=== PATIENT | female | born 1955 | race Caucasian/White ===

== ENCOUNTER 2022-06-11 20:48 | Observation (INO) | payer MEDICARE, OTHER ==
[~2022-06-11] VITALS: Ht 155 cm; Wt 81.5 kg
[2022-06-11] MEDS ORDERED: BENZ200C51 PO (21:05)
[2022-06-11] MEDS ORDERED: AMLO-250 PO (21:05)
[2022-06-11] MEDS ORDERED: LOSA100T57 PO (21:05)
[2022-06-11] MEDS ORDERED: CYCL10TA25 PO (21:05)
[2022-06-11] MEDS ORDERED: CELE-63 PO (21:05)
[2022-06-11] MEDS ORDERED: DEXL60CA6 PO (21:05)
[2022-06-11] MEDS ORDERED: SIMV40TA25 PO (21:05)
[2022-06-11] MEDS ORDERED: ESCI20TA39 PO (21:05)
[2022-06-11 21:17] LABS: BASOPHILS # (AUTO) 0.1 10^3/uL (0.0-0.1); BASOPHILS % (AUTO) 1 % (0-10); EOSINOPHILS # (AUTO) 0.2 10^3/uL (0.0-0.3); EOSINOPHILS % (AUTO) 2 % (0-10); HEMATOCRIT 42 % (35-52); HEMOGLOBIN 14.3 g/dL (11.5-16.0); LYMPHOCYTES # (AUTO) 3.2 10^3/uL (1.0-4.0); LYMPHOCYTES % (AUTO) 32 % (12-44); MEAN CORPUSCULAR HEMOGLOBIN 30 pg (25-34); MEAN CORPUSCULAR HGB CONC 34 g/dL (32-36); MEAN CORPUSCULAR VOLUME 87 fL (80-99); MEAN PLATELET VOLUME 10.8 fL (9.0-12.2); MONOCYTES # (AUTO) 0.7 10^3/uL (0.0-1.0); MONOCYTES % (AUTO) 7 % (0-12); NEUTROPHILS # (AUTO) 5.7 10^3/uL (1.8-7.8); NEUTROPHILS % (AUTO) 58 % (42-75); PLATELET COUNT 260 10^3/uL (130-400); WHITE BLOOD COUNT 9.9 10^3/uL (4.3-11.0)
--- NOTE | 2022-06-11 21:24 | ED General ---
General Chief Complaint: Neurological Problems Stated Complaint: NUMBNESS ALL OVER Nursing Triage Note: c/o right hand/wrist numbness, intermittant numbness all over since 1300 06/10/22. Source of Information: Patient (EXTREMELY DIFFICULT AND VAGUE HISTORIAN) History of Present Illness Date Seen by Provider: Jun 11, 2022 Time Seen by Provider: 21:03 Allergies and Home Medications Allergies Coded Allergies: Penicillins (Verified Allergy, Unknown, 06/11/22) Patient Home Medication List Amlodipine Besylate (Amlodipine Besylate) 5 Mg Tablet, (Reported) Entered as Reported by: RICKY VEGAS on 06/11/222104 Last Action: New Order Benzonatate (Benzonatate) 200 Mg Capsule, (Reported) Entered as Reported by: RICKY VEGAS on 06/11/222104 Last Action: New Order Celecoxib (Celecoxib) 200 Mg Capsule, (Reported) Entered as Reported by: RICKY VEGAS on 06/11/222104 Last Action: New Order Cyclobenzaprine HCl (Cyclobenzaprine HCl) 10 Mg Tablet, (Reported) Entered as Reported by: RICKY VEGAS on 06/11/222104 Last Action: New Order Dexlansoprazole (Dexlansoprazole Dr) 60 Mg Cap..bp, (Reported) Entered as Reported by: RICKY VEGAS on 06/11/222104 Last Action: New Order Escitalopram Oxalate (Escitalopram Oxalate) 20 Mg Tablet, (Reported) Entered as Reported by: RICKY VEGAS on 06/11/222104 Last Action: New Order Losartan Potassium (Losartan Potassium) 100 Mg Tablet, (Reported) Entered as Reported by: RICKY VEGAS on 06/11/222104 Last Action: New Order Simvastatin (Simvastatin) 40 Mg Tablet, (Reported) Entered as Reported by: RICYK VEGAS on 06/11/222104 Last Action: New Order Past Ledepnt-Ddinkn-Djpgiw Hx Patient Social History Tobacco Use?: Yes Substance use?: No Alcohol Use?: No Pt feels they are or have been: No Immunizations Up To Date First/Initial COVID19 Vaccinat: na Past Medical History Surgery/Hospitalization HX: hysterectomy, knee, dental extraction Physical Exam Vital Signs Vital Signs - First Documented 06/11/22 21:00 Temp 36.1 Pulse 108 Resp 18 B/P (MAP) 139/82 (101) Pulse Ox 96 O2 Delivery Room Air Capillary Refill : Less Than 3 Seconds Height, Weight, BMI Height: '" Weight: lbs. oz. kg; 32.00 BMI Method: Progress/Results/Core Measures Suspected Sepsis SIRS Temperature: Pulse: 108 Respiratory Rate: 18 Laboratory Tests 06/11/22 21:10: White Blood Count 9.9 Blood Pressure 139 /82 Mean: 101 Laboratory Tests 06/11/22 21:10: Creatinine 1.62H, INR Comment 1.0, Platelet Count 260, Total Bilirubin 0.4 Results/Orders Lab Results Laboratory Tests Test 06/11/22 21:10 06/11/22 22:18 Range/Units White Blood Count 9.9 4.3-11.0 10^3/uL Red Blood Count 4.84 3.80-5.11 10^6/uL Hemoglobin 14.3 11.5-16.0 g/dL Hematocrit 42 35-52 % Mean Corpuscular Volume 87 80-99 fL Mean Corpuscular Hemoglobin 30 25-34 pg Mean Corpuscular Hemoglobin Concent 34 32-36 g/dL Red Cell Distribution Width 13.7 10.0-14.5 % Platelet Count 260 130-400 10^3/uL Mean Platelet Volume 10.8 9.0-12.2 fL Immature Granulocyte % (Auto) 0 % Neutrophils (%) (Auto) 58 42-75 % Lymphocytes (%) (Auto) 32 12-44 % Monocytes (%) (Auto) 7 0-12 % Eosinophils (%) (Auto) 2 0-10 % Basophils (%) (Auto) 1 0-10 % Neutrophils # (Auto) 5.7 1.8-7.8 10^3/uL Lymphocytes # (Auto) 3.2 1.0-4.0 10^3/uL Monocytes # (Auto) 0.7 0.0-1.0 10^3/uL Eosinophils # (Auto) 0.2 0.0-0.3 10^3/uL Basophils # (Auto) 0.1 0.0-0.1 10^3/uL Immature Granulocyte # (Auto) 0.0 0.0-0.1 10^3/uL Erythrocyte Sedimentation Rate 21 0-30 MM/HR Prothrombin Time 13.9 12.2-14.7 SEC INR Comment 1.0 0.8-1.4 Activated Partial Thromboplast Time 25 24-35 SEC D-Dimer 0.46 0.00-0.49 UG/ML Sodium Level 131 L 135-145 MMOL/L Potassium Level 3.9 3.6-5.0 MMOL/L Chloride Level 98 98-107 MMOL/L Carbon Dioxide Level 20 L 21-32 MMOL/L Anion Gap 13 5-14 MMOL/L Blood Urea Nitrogen 15 7-18 MG/DL Creatinine 1.62 H 0.60-1.30 MG/DL Estimat Glomerular Filtration Rate 34 BUN/Creatinine Ratio 9 Glucose Level 470 *H 70-105 MG/DL Calcium Level 8.8 8.5-10.1 MG/DL Corrected Calcium 8.7 8.5-10.1 MG/DL Magnesium Level 1.9 1.6-2.4 MG/DL Total Bilirubin 0.4 0.1-1.0 MG/DL Aspartate Amino Transf (AST/SGOT) 71 H 5-34 U/L Alanine Aminotransferase (ALT/SGPT) 64 H 0-55 U/L Alkaline Phosphatase 133 40-136 U/L Total Creatine Kinase 83 29-168 U/L Creatine Kinase MB 1.2 <6.6 NG/ML Myoglobin 73.4 10.0-92.0 NG/ML Troponin I < 0.028 <0.028 NG/ML C-Reactive Protein High Sensitivity 1.31 H 0.00-0.50 MG/DL B-Type Natriuretic Peptide 10.4 <100.0 PG/ML Total Protein 7.5 6.4-8.2 GM/DL Albumin 4.1 3.2-4.5 GM/DL TSH [place] Testing 1.72 0.35-4.94 UIU/ML Urine Color YELLOW Urine Clarity CLEAR Urine pH 6.0 5-9 Urine Specific [place] 1.010 L 1.016-1.022 Urine Protein NEGATIVE NEGATIVE Urine Glucose (UA) 3+ H NEGATIVE Urine Ketones NEGATIVE NEGATIVE Urine Nitrite NEGATIVE NEGATIVE Urine Bilirubin NEGATIVE NEGATIVE Urine Urobilinogen 0.2 < = 1.0 MG/DL Urine Leukocyte Esterase NEGATIVE NEGATIVE Urine RBC (Auto) NEGATIVE NEGATIVE Urine RBC 2-5 H /HPF Urine WBC RARE /HPF Urine Squamous Epithelial Cells 5-10 /HPF Urine Crystals NONE /LPF Urine Bacteria TRACE /HPF Urine Casts NONE /LPF Urine Mucus NEGATIVE /LPF Urine Culture Indicated NO My Orders Orders - SRIKANTH,BEE K DO Ed Iv/Invasive Line Start (06/11/22 21:09) Ekg Tracing (06/11/22 21:09) Monitor-Rhythm Ecg Trace Only (06/11/22 21:09) Ct Head Wo-R/O Stroke (06/11/22 21:09) Chest 1 View, Ap/Pa Only (06/11/22 21:09) Bnp Julius (06/11/22 21:09) Cbc With Automated Diff (06/11/22 21:09) Comprehensive Metabolic Panel (06/11/22 21:09) Creatine Kinase (06/11/22 21:09) Creatine Kinase Mb (06/11/22 21:09) Hs C Reactive Protein (06/11/22 21:09) Fibrin Degradation Products (06/11/22:) Magnesium (06/11/22 21:) Protime With Inr (06/11/22 21:09) Partial Thromboplastin Time (06/11/22 21:09) Thyroid Analyzer (06/11/22 21:09) Ua Culture If Indicated (06/11/22 21:09) Erythrocyte Sedimentation Rate (06/11/22 21:09) Myoglobin Serum (06/11/22 21:09) Troponin I [place] (06/11/22 21:09) Nothing By Mouth (06/12/22 Breakfast) Vital Signs Stroke Patient Q15M (06/11/22 21:09) Dysphagia Screening Tool Q10MX1 (06/11/22 21:09) Ed Iv/Invasive Line Start (06/11/22 22:43) Ns Iv 1000 Ml (Sodium Chloride 0.9%) (06/11/22 22:45) Insulin (Regular) Human (Novolin R (Per (06/11/22 23:30) Ed Iv/Invasive Line Start (06/11/22 23:26) Ns Iv 1000 Ml (Sodium Chloride 0.9%) (06/11/22 23:30) Insulin (Regular) Human (Novolin R (Per (06/11/22 23:30) Ns Iv 1000 Ml (Sodium Chloride 0.9%) (06/11/22 23:28) Medications Given in ED Current Medications Medications Dose Ordered Sig/Enedina Route Start Time Stop Time Status Last Admin Dose Admin Insulin Human Regular 10 unit ONCE ONCE SC 06/11/22 23:30 06/11/22 23:31 DC 06/11/22 23:36 10 UNIT Vital Signs/I&O 06/11/22 21:00 Temp 36.1 Pulse 108 Resp 18 B/P (MAP) 139/82 (101) Pulse Ox 96 O2 Delivery Room Air 06/11/22 23:59 Intake Total 1000 ml Balance 1000 ml Capillary Refill : Less Than 3 Seconds Blood Pressure Mean: 101 Progress Note : Progress Note NO PRIOR VISITS HERE. Departure Impression Primary Impression: Newly diagnosed diabetes Disposition: ADMITTED INPATIENT Condition: Stable Admissions Decision to Admit Reason: Admit from ER (General) Decision to Admit/Date: Jun 11, 2022 Time/Decision to Admit Time: 22:30 Departure-Patient Inst. Referrals: NO,LOCAL PHYSICIAN (PCP/Family) Primary Care Physician BEE DUKE DO Jun 11, 2022 21:24
[2022-06-11 21:28] LABS: ALBUMIN 4.1 GM/DL (3.2-4.5); CHLORIDE 98 MMOL/L (98-107); POTASSIUM 3.9 MMOL/L (3.6-5.0); SODIUM 131 MMOL/L (135-145)
[2022-06-11 21:29] LABS: CALCIUM 8.8 MG/DL (8.5-10.1)
[2022-06-11 21:31] LABS: TOTAL PROTEIN 7.5 GM/DL (6.4-8.2)
[2022-06-11 21:32] LABS: BILIRUBIN,TOTAL 0.4 MG/DL (0.1-1.0); CARBON DIOXIDE 20 MMOL/L (21-32)
[2022-06-11 21:34] LABS: ALKALINE PHOSPHATASE 133 U/L (40-136); CREATININE SERUM 1.62 MG/DL (0.60-1.30); GLUCOSE 470 MG/DL (70-105)
[2022-06-11 21:35] LABS: BUN/CREATININE RATIO 9; GFR ESTIMATED 34
[2022-06-11 21:36] LABS: ERYTHROCYTE SEDIMENTATION RATE 21 MM/HR (0-30)
[2022-06-11 21:37] LABS: ALANINE AMINOTRANSFERASE 64 U/L (0-55); MAGNESIUM 1.9 MG/DL (1.6-2.4)
--- NOTE | 2022-06-11 21:37 | Diagnostic Imaging Report ---
EXAMINATION: CT head without contrast. TECHNIQUE: Multiple contiguous axial images were obtained through the brain without the use of intravenous contrast. All CT scans use one or more of the following dose optimizing techniques: automated exposure control, MA and/or KvP adjustment based on patient size and exam type or iterative reconstruction. HISTORY: Neuro deficit. COMPARISON: None available. 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 No mass effect or midline shift. The ventricles are normal in size and configuration. Basilar cisterns are patent. There is no intra-axial or extra-axial fluid collection. There is no intracranial hemorrhage. The orbits are normal. Paranasal sinuses are normal. Mastoid air cells are clear. No soft tissue abnormality is seen. No osseus lesion or fracture is seen. 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 Dictated by: Dictated on workstation # [id number]
[2022-06-11 21:38] LABS: CREATINE KINASE 83 U/L (29-168)
--- NOTE | 2022-06-11 21:38 | Diagnostic Imaging Report ---
EXAMINATION: Chest 1 view. HISTORY: Chest pain. COMPARISON: None available. FINDINGS: The lungs are clear without edema or pneumonia. No pleural effusion or pneumothorax. Heart size is normal. IMPRESSION: Clear lungs. Dictated by: Dictated on workstation # [id number]
[2022-06-11 21:45] LABS: CREATINE KINASE MB 1.2 NG/ML (<6.6)
[2022-06-11 21:57] LABS: TSH (THYROID ANALYZER) 1.72 UIU/ML (0.35-4.94)
[2022-06-11 22:00] LABS: FIBRIN DEGRADATION PRODUCTS 0.46 UG/ML (0.00-0.49); PROTHROMBIN TIME PATIENT 13.9 SEC (12.2-14.7)
[2022-06-11 22:25] LABS: BILIRUBIN,URINE NEGATIVE (NEGATIVE); CLARITY,URINE CLEAR; COLOR,URINE YELLOW; GLUCOSE, URINE (UA) 3+ (NEGATIVE); KETONES,URINE NEGATIVE (NEGATIVE); LEUKOCYTE ESTERASE ,URINE NEGATIVE (NEGATIVE); NITRITE,URINE NEGATIVE (NEGATIVE); PROTEIN,URINE NEGATIVE (NEGATIVE)
[2022-06-11 22:36] LABS: BACTERIA,URINE TRACE /HPF; WBC,URINE RARE /HPF
[2022-06-11] MEDS ORDERED: NS IV 1000 ML 1,000 ML IV SCH ×2 (22:45→23:30)
[2022-06-11] MEDS ORDERED: NS IV 1000 ML 1,000 ML ONE (23:28)
[2022-06-11] MEDS ORDERED: inSUlin (REGULAR) HUMAN 1 UNIT/0.01 ML (CHARGE PER UNIT) IV ONE (23:30)
[2022-06-11] MEDS ORDERED: inSUlin (REGULAR) HUMAN 1 UNIT/0.01 ML (CHARGE PER UNIT) SC ONE (23:30)
[2022-06-12] MEDS ORDERED: ACETAMINOPHEN 500 MG TAB (TYLENOL) PO PRN (01:30)
[2022-06-12] MEDS ORDERED: ONDANSETRON 4 MG/2 ML (SDV) Z0FRAN IV PRN (01:30)
[2022-06-12] MEDS ORDERED: KETOROLAC 30 MG/ML VIAL IV PRN (01:30)
[2022-06-12] MEDS: NS IV 1000 ML 1,000 ML IV SCH ×2 (01:44→06:15)
[2022-06-12 02:01] VITALS: BP 136/71
[2022-06-12 03:56] VITALS: BP 111/72
[2022-06-12] MEDS: inSUlin ASPART (NovoLOG) 1 UNIT/0.01 ML (CHARGE PER UNIT) SC SCH ×2 (06:18→12:50)
[2022-06-12 06:21] LABS: BASOPHILS # (AUTO) 0.1 10^3/uL (0.0-0.1); BASOPHILS % (AUTO) 1 % (0-10)
[2022-06-12 06:23] LABS: EOSINOPHILS # (AUTO) 0.2 10^3/uL (0.0-0.3); EOSINOPHILS % (AUTO) 2 % (0-10); HEMATOCRIT 36 % (35-52); HEMOGLOBIN 11.9 g/dL (11.5-16.0); LYMPHOCYTES # (AUTO) 2.6 10^3/uL (1.0-4.0); LYMPHOCYTES % (AUTO) 30 % (12-44); MEAN CORPUSCULAR HEMOGLOBIN 29 pg (25-34); MEAN CORPUSCULAR HGB CONC 33 g/dL (32-36); MEAN CORPUSCULAR VOLUME 88 fL (80-99); MEAN PLATELET VOLUME 12.3 fL (9.0-12.2); MONOCYTES # (AUTO) 0.7 10^3/uL (0.0-1.0); MONOCYTES % (AUTO) 8 % (0-12); NEUTROPHILS # (AUTO) 5.1 10^3/uL (1.8-7.8); NEUTROPHILS % (AUTO) 58 % (42-75); PLATELET COUNT 59 10^3/uL (130-400); WHITE BLOOD COUNT 8.7 10^3/uL (4.3-11.0)
[2022-06-12 06:33] LABS: SMEAR SCAN COMMENT YES
[2022-06-12 06:40] LABS: BILIRUBIN,TOTAL 0.4 MG/DL (0.1-1.0); CALCIUM 7.7 MG/DL (8.5-10.1); CREATININE SERUM 1.05 MG/DL (0.60-1.30); TOTAL PROTEIN 5.6 GM/DL (6.4-8.2)
--- NOTE | 2022-06-12 07:57 | Short Stay Summary-Hospitalist ---
CHANG OBREGON 06/12/22 0757: History of Present Illness HPI/Chief Complaint Ms. Wasserman is a 67 yo female admitted for new onset dm. Pt reports that she came into ED yesterday because for the past few days she was feeling weakness, kept forgetting words, and had trouble seeing. In the ED her blood sugar was in the 400s. Pt reports that she does not know her last A1c and that she has never been diagnosed with diabetes before this. She has a family hx of T2DM. At present patient is laying comfortably in bed and she reports that her symptoms have improved. Notes that she has yeast infection which over the counter medication has not helped. she reports that she has not received her home medications for blood pressure. Denies any N/V, fever, CP, or SOB. Pt denies any new or worsening sx. No other complaints Date Seen 06/12/22 Time Seen by a Provider: 08:54 Attending Physician No,Local Physician PCP Admitting Physician: Sulma Antonio DO Attending Physician: Sulma Antonio DO Referring Physician Date of Admission Jun 12, 2022 at 00:56 Home Medications & Allergies Home Medications Reviewed patient Home Medication Reconciliation performed by pharmacy medication reconciliations thin film technician and/or nursing. Patients Allergies have been reviewed. Allergies Allergies Coded Allergies Penicillins (Verified Allergy, Unknown, 06/11/22) Past Medical/Social/Family Hx Patient Social History Tobacco Use?: Yes Tobacco type used: Cigarettes Smoking Status: Current Everyday Smoker Smokeless Tobacco Frequency: Never a User Use of E-Cig and/or Vaping dev: No Substance use?: No Alcohol Use?: No Pt stated abuse/neglect: No Immunizations Up To Date Influenza Vaccine Up-to-Date: No; Not Current First/Initial COVID19 Vaccinat: na Tetanus Booster (TDap): More Than 5 Years Hepatitis A: No Hepatitis B: No TB Skin Test: None Current Status status: No status: No Advance Directives: No Communicates: Verbally Primary Language: Kiswahili Preferred Spoken Language: Kiswahili Is interpretation needed?: No Sensory deficits: Vision impairment, Hearing impairment, Speech impairment Implanted or Applied Medical D: None Review of Systems Constitutional: No chills, No diaphoresis, No dizziness, No fever EENTM: no symptoms reported Respiratory: no symptoms reported Cardiovascular: no symptoms reported Gastrointestinal: no symptoms reported Genitourinary: no symptoms reported Psychiatric/Neurological: Numbness (right arm) All Other Systems Reviewed Negative Unless Noted: Yes Physical Exam Physical Exam Vital Signs Vital Signs - First Documented 06/11/22 21:00 Temp 36.1 Pulse 108 Resp 18 B/P (MAP) 139/82 (101) Pulse Ox 96 O2 Delivery Room Air Capillary Refill : Less Than 3 Seconds Height, Weight, BMI Height: '" Weight: lbs. oz. kg; 33.92 BMI Method: General Appearance: No Apparent Distress, WD/WN HEENT: PERRL/EOMI Neck: Full Range of Motion, Normal Inspection, Non Tender, Supple Respiratory: Chest Non Tender, Lungs Clear, Normal Breath Sounds, No Accessory Muscle Use, No Respiratory Distress Cardiovascular: Regular Rate, Rhythm, No Edema, No Murmur Gastrointestinal: Normal Bowel Sounds, No Pulsatile Mass, Non Tender Neurologic/Psychiatric: Alert, Oriented x3, No Motor/Sensory Deficits, Normal Mood/Affect, program research specialist II-XII Norm as Tested Skin: Normal Color, Warm/Dry Lymphatic: No Adenopathy Results Results/Procedures Labs Laboratory Tests 06/11/22 21:10 06/12/22 05:48 Patient resulted labs reviewed. Imaging: Reviewed Imaging Report Short Stay Diagnosis Discharge Diagnosis-Short Stay Admission Diagnosis New onset DM Final Discharge Diagnosis New onset DM Conclusion Plan New onset DM A1C pending Start pt on Levemer 15 units x2day Fluconazole Lifestyle and diet counseling and modification Provide pt with lancet and strips/glucose monitor Continue home meds as indicated follow up with PCP for medication and DM management SULMA ANTONIO DO 06/13/22 0620: Past Medical/Social/Family Hx Patient Social History Marrital Status: single Review of Systems Constitutional: see HPI Short Stay Diagnosis Discharge Diagnosis-Short Stay Admission Diagnosis DM Final Discharge Diagnosis DM Conclusion Plan DC home Supervisory-Addendum Brief Verification & Attestation Participated in pt care: history, MDM, physical Personally performed: exam, history, MDM, supervision of care Care discussed with: Medical Student Procedures: n/a Results interpretation: Verified all documentation Verification and Attestation of Medical Student E/M Service A medical student performed and documented this service in my presence. I reviewed and verified all information documented by the medical student and made modifications to such information, when appropriate. I personally performed the physical exam and medical decision making. Sulma Antonio, Jun 13, 2022,06:19 CHANG OBREGON Jun 12, 2022 07:57 SULMA ANTONIO DO Jun 13, 2022 06:20
[2022-06-12 08:00] VITALS: BP 107/55
[2022-06-12] MEDS ORDERED: fluCOnazole (DIFLUCAN) 100 MG TAB PO NR (11:30)
[2022-06-12 12:00] VITALS: BP 138/70
[2022-06-12] MEDS ORDERED: INSU100I30 SQ (12:55)
[2022-06-12] MEDS ORDERED: [UNRECOGNIZED DRUG - CODE] MC (12:55)
[2022-06-12] MEDS ORDERED: ACET-2267 PO (13:31)
[2022-06-12] MEDS ORDERED: DIPH25TA65 PO (13:31)
[2022-06-12] MEDS ORDERED: MULT-1029 PO (13:31)
[2022-06-12] MEDS ORDERED: ALBU6.7H13 INH (13:31)
[2022-06-12] MEDS ORDERED: LEVO5TAB28 PO (13:31)
[2022-06-12 15:08] VITALS: BP 127/73
== END 2022-06-12 16:06 | disposition home or self-care (01) ==
LOC: ER 20:59 → 4TH 06-12 00:56 → INTOOBSV 06-12 00:56
PROVIDERS: ADMIT Internal Medicine; ATTEND Internal Medicine
DX: E11.9 Type 2 diabetes mellitus without complications (principal); F17.210 Nicotine dependence, cigarettes, uncomplicated
CPT/HCPCS: 36415; 70450; 71045; 80053; 81000; 82550; 82553; 82947; 83036; 83735; 83874; 83880; 84443; 84484; 85025; 85379; 85610; 85652; 85730; 86141; 93005; 93041; G0378